=== PATIENT | female | born 1950 | race Caucasian/White ===

== ENCOUNTER 2018-02-14 18:36 | Emergency (ER) | payer MEDICARE, BC ==
[2018-02-14] MEDS ORDERED: NS 0.9% 1000 ML* 1,000 ML IV ONE (19:47)
[2018-02-14 20:05] LABS: ABS Basophils 0 10^3/ul (0-0.2); ABS Eosinophils 0.2 10^3/ul (0-0.6); ABS Lymphocytes 2.8 10^3/ul (1.0-4.8); ABS Monocytes 0.6 10^3/ul (0-0.8); ABS Neutrophils 6.5 10^3/ul (1.5-7.7); ABS Nucleated RBC 0 10^3/ul; Eosinophil % 2.2 % (0-6); Hematocrit 40 % (35-47); Hemoglobin 13.7 g/dl (12.0-16.0); Lymphocyte % 27.9 % (25-47); Mean Corpuscular HGB Conc 34 g/dl (31-36); Mean Corpuscular Hemoglobin 31 pg (27-31); Mean Corpuscular Volume 91 fL (80-97); Nucleated Red Blood Cells % 0; Platelet Count 226 10^3/ul (150-450); Red Blood Count 4.41 10^6/ul (4.0-5.4); Red Cell Distribution Width 14 % (10.5-15); White Blood Count 10.2 10^3/ul (3.5-10.8)
[2018-02-14 20:13] LABS: INR 0.88 (0.77-1.02)
--- NOTE | 2018-02-14 20:16 | RAD ---
HISTORY: Lightheadedness, hypertension COMPARISONS: April 16, 2008 VIEWS: 1: frontal portable view of the chest at 8:01 PM FINDINGS: LINES AND TUBES: None. CARDIOMEDIASTINAL SILHOUETTE: The cardiomediastinal silhouette is normal for portable technique. PLEURA: The costophrenic angles are sharp. No pleural abnormalities are noted. LUNG PARENCHYMA: There is density of the right lung apex medially, not clearly seen on the 2008 examination. ABDOMEN: The upper abdomen is clear. There is no subphrenic gas. BONES AND SOFT TISSUES: No bone or soft tissue abnormalities are noted. IMPRESSION: DENSITY OF THE MEDIAL RIGHT LUNG APEX. RECOMMEND CORRELATION WITH CONTRAST ENHANCED CT OF THE CHEST IN THE NONACUTE SETTING.
[2018-02-14] MEDS ORDERED: Lisinopril TAB* 10 MG PO ONE (21:06)
[2018-02-14] MEDS ORDERED: Benzonatate CAP* 100 MG PO ONE (21:07)
[2018-02-14] MEDS ORDERED: Amoxicillin/Clavulanate TAB* 875 MG PO ONE (21:09)
--- NOTE | 2018-02-14 21:18 | ED ---
Kirk Oconnell Julia, scribed for Frankie Kim MD on 02/14/18 at 1905 . Complex/Multi-Sys Presentation - HPI Summary HPI Summary: This patient is a 67 year old F presenting to [facility] accompanied by a male and female family members with a chief complaint of elevated blood pressure beginning today. Pt reports a blood pressure of 198 and then 225/95. Pt informed her PCP, Dr. Mcfadden, who instructed her to come to ED.Pt reports lightheadedness and nausea beginning at 15:30 today. Patient reports recent illness with chest congestion, left ear ache, and sore throat. Pt reports recent use of Mucinex. PMHx of HTN. Lisinopril taken every morning, including today. - History Of Current Complaint Chief Complaint: EDGeneral Time Seen by Provider: 02/14/18 18:58 Hx Obtained From: Patient Onset/Duration: Gradual Onset, Worse Since - today Timing: Constant Location: Negative Character: Unable To Describe - lightheaded nausea Associated Signs And Symptoms: Positive: Dizziness - lightheaded, Nausea Related History: Recent Illness - Allergies/Home Medications Allergies/Adverse Reactions: Allergies Allergy/AdvReac Type Severity Reaction Status Date / Time codeine Allergy Itching Verified 02/14/18 18:54 erythromycin base Allergy Facial Verified 02/14/18 18:54 Redness/Flushing Home Medications: Home Medications ALPRAZolam TAB* [Xanax TAB*] 0.25 mg PO Q6H PRN 02/14/18 [History Confirmed 12/03] Aspirin EC TAB* [Ecotrin EC Low Dose 81 MG*] 81 mg PO DAILY 02/14/18 [History Confirmed 02/14/18] Calcium Carbonate [Calcium] 500 mg PO DAILY 02/14/18 [History Confirmed 02/14/18 ] Escitalopram (NF) [Lexapro 10 mg (NF)] 10 mg PO DAILY 02/14/18 [History Confirmed 02/14/18] Lisinopril TAB* [Prinivil TAB*] 10 mg PO QAM 02/14/18 [History Confirmed ] Multivitamins/Minerals TAB* [Theragran/minerals TAB*] 1 tab PO DAILY 02/14/18 [ History Confirmed 02/14/18] Simvastatin TAB(NF) [Zocor(NF)] 20 mg PO DAILY 02/14/18 [History Confirmed 02/14] PMH/Surg Hx/FS Hx/Imm Hx Cardiovascular History: Reports: Hx Hypertension Musculoskeletal History: Reports: Hx Osteoporosis Denies: Hx Rheumatoid Arthritis - Cancer History Hx Chemotherapy: No Hx Radiation Therapy: No Infectious Disease History: No Infectious Disease History: Denies: Traveled Outside the [place] in Last 30 Days - Social History Lives: With Family Review of Systems Positive: Other - elevated BP Positive: Cough, Other - chest congestion Positive: Nausea Psychological: Other - lightheaded All Other Systems Reviewed And Are Negative: Yes Physical Exam - Summary Physical Exam Summary: General: well-appearing, no pain distress Skin: warm, color reflects adequate perfusion, dry Head: normal Eyes: EOMI, CEASAR ENT: R TM normal, L TM not visible due to cerumen Neck: supple, nontender Respiratory: CTA, breath sounds present Cardiovascular: RRR Abdomen: soft, nontender Bowel: present Musculoskeletal: normal, strength/ROM intact Neurological: normal, sensory/motor intact, A&O x3 Psychological: affect/mood appropriate Triage Information Reviewed: Yes Vital Signs On Initial Exam: Initial Vitals Temp Pulse Resp BP Pulse Ox 100.5 F 76 16 185/85 97 02/14/18 18:46 02/14/18 18:46 02/14/18 18:46 02/14/18 18:46 02/14/18 18:46 Vital Signs Reviewed: Yes Diagnostics - Vital Signs Vital Signs Temp Pulse Resp BP Pulse Ox 02/14/18 18:46 100.5 F 76 16 185/85 97 - Laboratory Lab Results: Lab Results 02/14/18 02/14/18 02/14/18 Range/Units 19:53 19:54 19:54 WBC 10.2 (3.5-10.8) 10^3/ul RBC 4.41 (4.0-5.4) 10^6/ul Hgb 13.7 (12.0-16.0) g/dl Hct 40 (35-47) % MCV 91 (80-97) fL MCH 31 (27-31) pg MCHC 34 (31-36) g/dl RDW 14 (10.5-15) % Plt Count 226 (150-450) 10^3/ul MPV 8.0 (7.4-10.4) um3 Neut % (Auto) 63.7 (38-83) % Lymph % (Auto) 27.9 (25-47) % [place] % (Auto) 5.9 (0-7) % Eos % (Auto) 2.2 (0-6) % Baso % (Auto) 0.3 (0-2) % Absolute Neuts (auto) 6.5 (1.5-7.7) 10^3/ul Absolute Lymphs (auto) 2.8 (1.0-4.8) 10^3/ul Absolute Monos (auto) 0.6 (0-0.8) 10^3/ul Absolute Eos (auto) 0.2 (0-0.6) 10^3/ul Absolute Basos (auto) 0 (0-0.2) 10^3/ul Absolute Nucleated RBC 0 10^3/ul Nucleated RBC % 0 INR (Anticoag Therapy) 0.88 (0.77-1.02) APTT 30.9 (26.0-36.3) seconds Sodium (139-145) mmol/L Potassium (3.5-5.0) mmol/L Chloride (101-111) mmol/L Carbon Dioxide (22-32) mmol/L Anion Gap (2-11) mmol/L BUN (6-24) mg/dL Creatinine (0.51-0.95) mg/dL Est GFR ( Amer) (>60) Est GFR (Non-Af Amer) (>60) BUN/Creatinine Ratio (8-20) Glucose (70-100) mg/dL Lactic Acid 0.9 (0.5-2.0) mmol/L Calcium (8.6-10.3) mg/dL Magnesium (1.9-2.7) mg/dL Total Bilirubin (0.2-1.0) mg/dL AST (13-39) U/L ALT (7-52) U/L Alkaline Phosphatase (34-104) U/L Total Creatine Kinase (10-223) U/L CK-MB (CK-2) (0.6-6.3) ng/mL Troponin I (<0.04) ng/mL C-Reactive Protein (< 5.00) mg/L B-Natriuretic Peptide ( - 100) pg/mL Total Protein (6.4-8.9) g/dL Albumin (3.2-5.2) g/dL Globulin (2-4) g/dL Albumin/Globulin Ratio (1-3) Lipase (11.0-82.0) U/L TSH (0.34-5.60) mcIU/mL 02/14/18 02/14/18 Range/Units 19:54 19:54 WBC (3.5-10.8) 10^3/ul RBC (4.0-5.4) 10^6/ul Hgb (12.0-16.0) g/dl Hct (35-47) % MCV (80-97) fL MCH (27-31) pg MCHC (31-36) g/dl RDW (10.5-15) % Plt Count (150-450) 10^3/ul MPV (7.4-10.4) um3 Neut % (Auto) (38-83) % Lymph % (Auto) (25-47) % [place] % (Auto) (0-7) % Eos % (Auto) (0-6) % Baso % (Auto) (0-2) % Absolute Neuts (auto) (1.5-7.7) 10^3/ul Absolute Lymphs (auto) (1.0-4.8) 10^3/ul Absolute Monos (auto) (0-0.8) 10^3/ul Absolute Eos (auto) (0-0.6) 10^3/ul Absolute Basos (auto) (0-0.2) 10^3/ul Absolute Nucleated RBC 10^3/ul Nucleated RBC % INR (Anticoag Therapy) (0.77-1.02) APTT (26.0-36.3) seconds Sodium 140 (139-145) mmol/L Potassium 3.1 L (3.5-5.0) mmol/L Chloride 102 (101-111) mmol/L Carbon Dioxide 27 (22-32) mmol/L Anion Gap 11 (2-11) mmol/L BUN 19 (6-24) mg/dL Creatinine 0.73 (0.51-0.95) mg/dL Est GFR ( Amer) 101.7 (>60) Est GFR (Non-Af Amer) 79.0 (>60) BUN/Creatinine Ratio 26.0 H (8-20) Glucose 95 (70-100) mg/dL Lactic Acid (0.5-2.0) mmol/L Calcium 9.3 (8.6-10.3) mg/dL Magnesium 2.0 (1.9-2.7) mg/dL Total Bilirubin 0.40 (0.2-1.0) mg/dL AST 15 (13-39) U/L ALT 10 (7-52) U/L Alkaline Phosphatase 66 (34-104) U/L Total Creatine Kinase 40 (10-223) U/L CK-MB (CK-2) 1.7 (0.6-6.3) ng/mL Troponin I 0.01 (<0.04) ng/mL C-Reactive Protein 9.00 H (< 5.00) mg/L B-Natriuretic Peptide 85 ( - 100) pg/mL Total Protein 7.0 (6.4-8.9) g/dL Albumin 4.1 (3.2-5.2) g/dL Globulin 2.9 (2-4) g/dL Albumin/Globulin Ratio 1.4 (1-3) Lipase 16 (11.0-82.0) U/L TSH 0.99 (0.34-5.60) mcIU/mL Result Diagrams: 02/14/18 19:54 02/14/18 19:54 Lab Statement: Any lab studies that have been ordered have been reviewed, and results considered in the medical decision making process. - Radiology CXR Radiology Interpretation Completed By: Radiologist - DENSITY OF THE MEDIAL RIGHT LUNG APEX. RECOMMEND CORRELATION WITH CONTRAST ENHANCED CT OF THE CHEST IN THE NONACUTE SETTING. ED Physician has reviewed this report. - EKG 1954 Cardiac Rate: NL EKG Rhythm: Sinus Rhythm - at 68 BPM EKG Interpretation: minimal ST depression in the anterolateral leads Re-Evaluation - Re-Evaluation 1 Re-Evaluation Time: 21:00 Comment: Pt informed of results. Complex Multi-Symp Course/Dx Course Of Treatment: DISCUSSED RESULTS WITH THE PATIENT AND FAMILY. SYSTOLIC BP 180. WILL GIVE LISINOPRIL 10MG PO IN ED. DISCUSSED GETTING THE CHEST CT WITH IV CONTRAST IN THE ED. THE PATIENT DECLINED THE CT AT THIS TIME. I DISCUSSED THE NEED TO HAVE IT DONE WITH HER PMD. WILL SWITCH FROM AMOXICILLIN TO AUGMENTIN FOR BROADER COVERAGE. F/U PMD; RETURN IF WORSE. - Diagnoses Provider Diagnoses: Hypertension, Pulmonary nodule, Fever Discharge - Sign-Out/Discharge Documenting (check all that apply): Discharge/Admit/Transfer - Discharge Plan Condition: Stable Disposition: HOME Prescriptions: Amoxicillin/Clavulanate TAB* [Augmentin TAB 875*] 875 mg PO BID #14 tab Benzonatate CAP* [Tessalon 100 MG CAP*] 100 mg PO TID PRN #15 cap PRN Reason: Cough Patient Education Materials: Hypertension (ED), Pulmonary Nodules (ED), Fever in Adults (ED) Referrals: Bhupinder Estevez MD [Primary Care Provider] - Additional Instructions: FOLLOW UP WITH YOUR DOCTOR. AVOID OVER THE COUNTER COLD MEDICATIONS THEY MAY INCREASE YOUR BLOOD PRESSURE. THERE WAS AN AREA ON YOUR CHEST X-RAY THAT NEEDS TO BE RE IMAGED WITH CT SCAN WITH IV CONTRAST. DISCUSS THIS WITH YOUR DOCTOR. RETURN TO THE EMERGENCY DEPARTMENT FOR ANY WORSENING OF YOUR CONDITION; CHEST PAIN, SHORTNESS OF BREATH, YOU FEEL ILL OR QUESTIONS OR CONCERNS. - Billing Disposition and Condition Condition: STABLE Disposition: HOME The documentation as recorded by the Kirk claudio Julia accurately reflects the service I personally performed and the decisions made by me, Frankie Kim MD.
[2018-02-14 21:21] VITALS: BP 183/82
== END 2018-02-14 21:26 | disposition home or self-care (01) ==
LOC: ED 18:36
DX: I10 Essential (primary) hypertension (principal); R91.1 Solitary pulmonary nodule; R50.9 Fever, unspecified; R51 Headache; R42 Dizziness and giddiness; R11.0 Nausea; R05 Cough
CPT/HCPCS: 36415; 71045; 80053; 82550; 82553; 83605; 83690; 83735; 83880; 84443; 84484; 85025; 85610; 85730; 86140; 93005; 99283; A9270-GY

== ENCOUNTER 2023-03-30 08:15 | Observation (INO) ==
[~2023-03-30 08:15] MED LIST: Buffered Lidocaine 1% SYRIN 1 ml INTRADERM ONE; Lactated Ringers 1000 ml BAG 1,000 ML IV SCH; Morphine 4 MG/ML VIAL (1 ml) IV PRN; Naloxone 0.4 mg VIAL 0.4 mg/ml 1 ml VIAL IV PRN; Phenylephrine IV 10 MG/ML 1 ml VIAL ONE; Prochlorperazine 5 mg/ml 2 ml VIAL (10 mg) IV PRN; Propofol 10 MG/ML 20 ML BTL ONE; Scopolamine 1 mg/72hr PATCH TRANSDERM ONE; fentaNYL 100 mcg/2 ml 50 MCG/ML VIAL IV PRN
[2023-03-30] MEDS ORDERED: Scopolamine 1 mg/72hr PATCH ONE (08:26)
[2023-03-30] MEDS ORDERED: ceFAZolin 2 GM in NS PREMIX 2 GM/100 ML BAG IVPB ONE (08:27)
[2023-03-30 09:08] LABS: Rapid COVID-19 Molecular Undetected (Undetected)
[2023-03-30] MEDS ORDERED: Lidocaine 2% PF 5 ML VIAL ONE (09:49)
[2023-03-30] MEDS ORDERED: Midazolam 2 mg/2 ml VIAL 1 mg/ml 2 ml VIAL (2 mg) ONE ×2 (09:49→10:58)
[2023-03-30] MEDS ORDERED: Ondansetron 4 mg VIAL 2 MG/ML 2 ml VIAL ONE (09:51)
[2023-03-30] MEDS ORDERED: ROPIVACAINE 5 MG/ML 30 ML BTL (0.5%) ONE (10:18)
[2023-03-30] MEDS ORDERED: Acetaminophen IV 1 GM/100ML 1,000 MG/100 ML BAG IV ONE (12:40)
[2023-03-30] MEDS ORDERED: fentaNYL 100 mcg/2 ml 50 MCG/ML VIAL ONE ×2 (13:04→14:26)
[2023-03-30] MEDS ORDERED: Lactulose 30 ml UDC PO PRN (13:52)
[2023-03-30] MEDS ORDERED: Morphine 2 MG/ML SYRINGE IV PRN (13:52)
[2023-03-30] MEDS ORDERED: Magnesium Hydroxide LIQ 30 ML UDC PO PRN (13:52)
[2023-03-30] MEDS ORDERED: Lactated Ringers 1000 ml BAG 1,000 ML IV SCH (14:00)
[2023-03-30] MEDS: ceFAZolin 1 GM ADVAN 1 GM in NS 0.9% 50 ML 50 ML IVPB SCH (20:45)
[2023-03-30] MEDS: Magnesium Hydroxide LIQ 30 ML UDC PO SCH (20:47)
[2023-03-30] MEDS ORDERED: Timolol 0.5% OPTH.SOL BTL BOTH EYES SCH (21:00)
[2023-03-31] MEDS: ceFAZolin 1 GM ADVAN 1 GM in NS 0.9% 50 ML 50 ML IVPB SCH ×2 (04:08→12:56)
[2023-03-31 06:23] LABS: Hematocrit 35.1 % (35-45); Mean Platelet Volume 8.9 fL (7.5-11.2); Platelet Count 175 10^3/uL (150-450)
[2023-03-31 06:51] LABS: Calcium 8.8 mg/dL (8.6-10.3); Creatinine, Serum 0.98 mg/dL (0.51-0.95); Potassium 3.5 mmol/L (3.5-5.0); eGFR CKD-EPI 60.6 (>60)
[2023-03-31] MEDS: Magnesium Hydroxide LIQ 30 ML UDC PO SCH (08:00)
[2023-03-31] MEDS ORDERED: Vitamin THERAPEUTIC TAB PO SCH (09:00)
[2023-03-31 10:09] VITALS: BP 104/61
[2023-04-02] MEDS ORDERED: Scopolamine 1 mg/72hr PATCH TRANSDERM PRN (08:00)
== END 2023-03-31 14:47 | disposition home or self-care (01) ==
LOC: INTOOBSV 08:15 → AA 08:15 → SSU 16:01
PROVIDERS: ADMIT Orthopaedic Surgery Adult Reconstructive Orthopaedic Surgery; ATTEND Orthopaedic Surgery Adult Reconstructive Orthopaedic Surgery